=== PATIENT | male | born 1945 | race Caucasian/White ===

== ENCOUNTER 2019-08-30 21:09 | Observation (INO) | payer OTHER ==
--- OUTSIDE RECORDS SUMMARY | 2019-08-30 21:14 | XMS REPORT | Continuity of Care Document ---
:1945 Author Organization [employer] Care Team Providers Name Role Phone [employer] Unavailable Un available Problems Problem Status Onset Classification Date Comments Sourc e Date Reported PTCA - HX OF Active 07/07/19 Condition 07/06/2014 15 Medical Group CAD Active 07/07/19 Condition 07/06/2014 15 Medical Group Coronary Active 07/07/19 Problem 03/06/2019 Data arteriosclerosis 15 migrated Med ical (disorder) from [facility] on 08/24/14. ABNORMAL STRESS Active 06/17/19 Condition 07/06/2014 TEST 15 Medical Group PAIN Active 06/17/19 [place] DYSPNEA Active 06/07/19 Condition 07/06/2014 15 Medical Group Dyspnea (finding) Active 06/07/19 Problem 03/06/2019 Data M H 15 migrated Medical from [facility] on 08/24/14. CHEST PAIN, Active 05/19/19 Condition 07/06/2014 ATYPICAL 15 Medical Group BODY MASS INDEX Active 05/19/19 Condition 07/06/2014 35.0-35.9, ADULT 15 Med ical Group GERD Active 05/19/19 Condition 07/06/2014 15 Medical Group Atypical chest pain Active 05/19/19 Problem 03/06/2019 Data (finding) 15 migrated Medical from [facility] on 08/24/14. Gastroesophageal Active 05/19/19 Problem 03/06/2019 Data reflux disease 15 migrated Medic al (disorder) from [facility] on 08/24/14. 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 LONG-TERM (CURRENT) Active 05/11/19 Condition 07/06/2014 MH USE OF OTHER 14 Medical MEDICATIONS Group ACTINIC KERATOSIS Active 05/11/19 Condition 07/06/2014 M H 14 Medical Group Actinic keratosis Active 05/11/19 Problem 03/06/2019 Data M H (disorder) 14 migrated Medical from [facility] on 07/16/14. Long-term drug Active 05/11/19 Problem 03/06/2019 Data therapy (procedure) 14 migrated Medical from [facility] on 07/16/14. CHEST PAIN Inactive 04/01/19 Condition 07/06/2014 MH 13 Medical Group ALLERGIC RHINITIS Active Condition 07/06/2014 M H Medical Group HYPERLIPIDEMIA Active Condition 07/06/2014 Medical Group HYPERTENSION Active Condition 07/06/2014 Medical Group ERECTILE Active Condition 07/06/2014 DYSFUNCTION Medical Group CEREBROVASCULAR Active Condition 07/06/2014 ACCIDENT, HX OF Medi kelsi Group Allergic rhinitis Active Problem 03/06/2019 Data M H (disorder) migrated Medical from [facility] on 07/16/14. 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 (disorder) Mixed Active Problem 03/06/2019 hyperlipidemia Medic al (disorder) Group Obesity (disorder) Active Problem 03/06/2019 Medical Group Prediabetes Active Problem 03/06/2019 MH (finding) Medical Group Raised TSH level Active Problem 03/06/2019 MH (finding) Medical Group Hyperlipidemia Resolved Problem 06/25/2014 S [place] (disorder) [place] CHEST PAIN NOS Active MH [place] Medications Medication Details Route Status Patient Ordering Order Source Instructions Provider Date Ticagrelor 60 60 mg = 1 Active MH MG Oral Tablet tab, PO, BID, 020 Med ical [Brilinta] # 180 tab, 4 Group Refill(s), Pharmacy: [facility] tamsulosin 0.4 0.4 mg = 1 Active MH mg oral capsule cap, PO, 019 Medical Daily, For Group bph, # 90 cap, 1 Refill(s), Pharmacy: [facility] tamsulosin 0.4 0.4 mg = 1 Active MH mg oral capsule cap, PO, 019 Medical Daily, For Group bph, # 90 cap, 1 Refill(s), Pharmacy: [facility] Metoprolol 25 mg = 1 Active MH Tartrate 25 mg tab, PO, BID, 019 Med ical oral tablet # 180 tab, 1 Group Refill(s), Pharmacy: [facility] atorvastatin 40 See Active MH mg oral tablet Instructions, 019 Med ical TAKE ONE Group TABLET BY MOUTH AT BEDTIME, # 90 tab, 1 Refill(s), Pharmacy: [facility] sildenafil 100 See Active MH MG Oral Tablet Instructions, 019 Med ical PRN for Group erectile dysfunction, 1/2- 1 tab PO Daily prn Take 30 min before sexual activity, # 30 tab, 3 Refill(s), Pharmacy: [facility] atorvastatin 40 See No Longer MH mg oral tablet Instructions, Active 018 Med ical TAKE ONE Group TABLET BY MOUTH AT BEDTIME, # 90 tab, 1 Refill(s), Pharmacy: [facility] Metoprolol 25 mg = 1 No Longer MH Tartrate 25 mg tab, PO, BID, Active 018 Med ical oral tablet # 180 tab, 1 Group Refill(s), Pharmacy: [facility] sildenafil 100 100 mg = 1 No Longer MH MG Oral Tablet tab, PO, Active 018 Medical [Viagra] Daily, PRN Group for erectile dysfunction, Take 30 minutes prior to intercourse (1/2 to 1), # 20 tab, 3 Refill(s), Pharmacy: [facility] 2 Ticagrelor 60 60 mg = 1 Active MH MG Oral Tablet tab, PO, BID, 018 Med ical [Brilinta] # 180 tab, 4 Group Refill(s) Ticagrelor 60 60 mg = 1 Inactive MH MG Oral Tablet tab, PO, BID, 018 Med ical [Brilinta] # 60 tab, 3 Group Refill(s), other Metoprolol 25 mg = 1 Active Tartrate 25 mg tab, PO, BID, 018 Med ical oral tablet # 180 tab, 1 Group Refill(s), Pharmacy: [facility] 482 atorvastatin 40 See Active MH mg oral tablet Instructions, 018 Med ical TAKE ONE Group TABLET BY MOUTH AT BEDTIME, # 90 tab, 1 Refill(s), Pharmacy: [facility] Metoprolol 25 mg = 1 Active Tartrate 25 mg tab, PO, BID, 017 Med ical oral tablet # 180 tab, 1 Group Refill(s), Pharmacy: [place] [id number] sildenafil 100 100 mg = 1 Active MH MG Oral Tablet tab, PO, 017 Medical [Viagra] Daily, PRN Group for erectile dysfunction, Take 30 minutes prior to intercourse (02/18 to 1), # 20 tab, 3 Refill(s) sildenafil 100 100 mg = 1 Inactive MH MG Oral Tablet tab, PO, 017 Medical [Viagra] Daily, PRN Group for erectile dysfunction, Take 30 minutes prior to intercourse (02/18 to 1), # 20 tab, 3 Refill(s), Pharmacy: [place] [id number] metoprolol 25 mg = 1 Active [place] tartrate 25 mg tab, PO, BID, 015 Krishna d oral tablet # 60 tab, 11 Refill(s) Aspirin Notes: Do not Inactive [place] crush or 015 [place] chew. (Same As: Ecotrin) Lisinopril Notes: (Same Inactive [place] as: Prinivil, 015 [place] Zestril) Tylenol Notes: Do not Inactive [place] exceed 4 015 [place] gm/day. (Same as: Tylenol) Pravastatin Notes: (Same No Longer Brayd gar as: Active 015 Land Pravachol) Ticagrelor Notes: (Same No Longer [place] as: Brilinta) Active 015 Land lisinopril 10 10 mg = 1 Active [place] mg oral tablet tab, PO, 015 [place] Daily, # 30 tab, 0 Refill(s) Aspirin 81 MG 81 mg = 1 Active [place] Enteric Coated tab, PO, 015 [place] Tablet [Kamila Daily, 0 Aspirin] Refill(s) ticagrelor 90 90 mg = 1 Active [place] mg oral tablet tab, PO, BID, 015 Krishna d 0 Refill(s) pravastatin 40 40 mg = 1 Active [place] mg oral tablet tab, PO, 015 [place] Bedtime, # 30 tab, 0 Refill(s) metoprolol Notes: (Same No Longer [place] tartrate as: Active 015 [place] Lopressor) Nitroglycerin Notes: (Same No Longer [place] as:Nitroquick Active 015 [place] , Nitrostat) "Do Not Crush" Sublingual tablet Ticagrelor 90 90 mg = 1 Inactive [place] MG Oral Tablet tab, PO, BID, 015 Krishna d [Brilinta] 0 Refill(s) Aspirin Low 1, PO, Daily, Inactive Brady gar Dose 81 mg oral 0 Refill(s) 015 [place] tablet pravastatin 40 40 mg = 1 Inactive [place] mg oral tablet tab, PO, 015 [place] Bedtime, # 30 tab, 0 Refill(s) lisinopril 10 10 mg = 1 Inactive [place] mg oral tablet tab, PO, 015 [place] Daily, # 30 tab, 0 Refill(s) normal saline 1,000 mL, No Longer [place] ar 0.9% IV 1,000 Rate: 250 Active 015 Land mL ml/hr, Infuse over: 4 hr, Route: IV, Dosing Weight 100 kg, Total Volume: 1,000, Start date: 06/21/14 7:35:00, Duration: 30 day, Stop date: 07/21/14 7:34:00 BRILINTA 90 MG 1 tablet Active TABS twice daily 015 Medical Group LISINOPRIL 5 MG 1 daily for Active TABS BP 014 Medical Group ADULT ASPIRIN 1 daily Active MH EC LOW STRENGTH 014 Medical 81 MG TBEC Group FLUOROURACIL 5 apply daily No Longer MH % CREA to actinic Active 014 Medical keratosis 3-4 Group weeks LISINOPRIL 10 1 tablet Active MH MG TABS daily 014 Medical Group PRAVASTATIN 1 daily Active MH SODIUM 40 MG 013 Medical TABS Group VIAGRA 100 MG 1/2 to 1 Active MH TABS tablet PO prn 012 Medical Group CLARITIN-D 12 No Longer MH HOUR 5-120 MG Active 012 Medical [id number] Group VIAGRA 100 MG 1/2 to 1 Active MH TABS tablet PO prn 012 Medical Group Allergies, Adverse Reactions, Alerts Substance Category Reaction Severity Reaction Status Date Comments S ource type Reported No Known Assertion Drug Medication allergy Medic al Allergies Group Immunizations Immunization Date Site Status Last Updated Comments Sour ce Given influenza virus Left completed Naik Result [facility] edical vaccine, 9 Deltoid Comment: Group inactivated<sup> Observed for 1</sup> 15 minutes with no adverse reactions noted. influenza virus Left completed Naik Result [facility] edical vaccine, 8 Deltoid Comment: Group inactivated<sup> Observed for 2</sup> 15 minutes with no adverse reactions noted. influenza virus Left completed Naik Result [facility] edical vaccine, 8 Deltoid Comment: Group inactivated<sup> Observed for 1</sup> 15 minutes with no adverse reactions noted. pneumococcal Right completed [place] Result Medi kelsi 13-valent 7 Deltoid Comment: Group vaccine<sup>1</s Observed 15 up> min. No adverse reaction. pneumococcal Right completed [place] Result Medi kelsi 13-valent 7 Deltoid Comment: Group vaccine<sup>4</s Observed 15 up> min. No adverse reaction. pneumococcal Right completed [place] Result Medi kelsi 13-valent 7 Deltoid Comment: Group vaccine<sup>3</s Observed 15 up> min. No adverse reaction. influenza virus Left completed [place] Result [facility] edical vaccine, 7 Deltoid Comment: Group inactivated<sup> Observed 15 2</sup> min. No adverse reaction. influenza virus Left completed [place] Result [facility] edical vaccine, 7 Deltoid Comment: Group inactivated<sup> Observed 15 3</sup> min. No adverse reaction. dT (Diphtheria completed [facility] dical and Tetanus) 1 Group immunization for children, #1 tetanus-diphther completed [facility] Result Medical ia 1 Comment: td. Group toxoids<sup>3</s Migrated from up> OBS ; Data migrated from [facility] on 03/21/2015. tetanus-diphther completed [facility] Result Medical ia 1 Comment: td. Group toxoids<sup>5</s Migrated from up> OBS ; Data migrated from [facility] on 03/21/2015. tetanus-diphther completed GE Result Medical ia 1 Comment: td. Group toxoids<sup>4</s Migrated from up> OBS ; Data migrated from [facility] on 03/21/2015. pneumococcal completed Medi kelsi immunization 1 Group administered pneumococcal completed [facility] Result Medi kelsi 23-valent 1 Comment: Group vaccine<sup>4</s pneumovax. up> Migrated from OBS ; Data migrated from [facility] on 03/21/2015. pneumococcal completed GE Result Medi kelsi 23-valent 1 Comment: Group vaccine<sup>6</s pneumovax. up> Migrated from OBS ; Data migrated from [facility] on 03/21/2015. pneumococcal completed GE Result Medi kelsi 23-valent 1 Comment: Group vaccine<sup>5</s pneumovax. up> Migrated from OBS ; Data migrated from [facility] on 03/21/2015. dT (Diphtheria completed [facility] dical and Tetanus) 1 Group booster given dT (Diphtheria completed [facility] dical and Tetanus) 4 Group booster given Results Order Name Results Value Reference Date Interpretation Comments Alice rce Range ELECTROLYTES AGAP 11.9 10.0 - 05/06 [place] 20.0 /2015 [place] ELECTROLYTES eGFR 61 06/22 <sup>1</sup>R Brady esult [place] Comment: The eGFR is calculated using the CKD-EPI formula. In most young, healthy individuals the eGFR will be >90 mL/min/1.73m2 . The eGFR declines with age. An eGFR of 60-89 may be normal in some populations, particularly the elderly, for whom the CKD-EPI formula has not been extensively validated. Use of the eGFR is not recommended in the following populations:& lt;br/>
I ndividuals with unstable creatinine concentration s, including patients and those with serious co-morbid conditions.<b r/>
Patie nts with extremes in muscle mass or diet.

The data above are obtained from the National Kidney Disease Education Program (NKDEP) which additionally recommends that when the eGFR is used in patients with extremes of body mass index for purposes of drug dosing, the eGFR should be multiplied by the estimated BMI. ELECTROLYTES Potassium Lvl 3.9 3.5 - 5.1 05/06 MH [place] ELECTROLYTES CO2 25 24 - 32 05/ MH [place] ELECTROLYTES Chloride Lvl 107 95 - 109 05/06 MH [place] ELECTROLYTES Creatinine Lvl 1.2 0.5 - 1.4 05/ MH [place] ELECTROLYTES Sodium Lvl 140 135 - 145 05/06 MH [place] ELECTROLYTES BUN 14 7 - 22 05/ MH [place] ELECTROLYTES Glucose Lvl 104 70 - 99 05/ <sup>2</sup>I M H nterpretive [place] Data: Adult reference range values reflect the clinical guidelines
of the [employer]. ELECTROLYTES Calcium Lvl 8.2 8.5 - 10.5 05/06 MH S ugar /2014 [place] HEMATOLOGY Monocytes # 0.6 0.0 - 0.8 05/06 MH [place] /2014 [place] HEMATOLOGY Basophils # 0.0 0.0 - 0.2 05/06 MH [place] /2014 [place] HEMATOLOGY Eosinophils # 0.1 0.0 - 0.5 05/06 MH [place] HEMATOLOGY Eosinophils 2.1 0.0 - 4.0 05/06 MH [place] /2014 [place] HEMATOLOGY Monocytes 8.2 2.0 - 12.0 05/06 MH [place] HEMATOLOGY Basophils 0.4 0.0 - 1.0 05/06 MH [place] HEMATOLOGY Segs-Bands # 4.1 1.5 - 8.1 05/06 [place] /2014 [place] HEMATOLOGY Lymphocytes 30.9 20.0 - 05/06 [place] 40.0 /2014 [place] HEMATOLOGY Segs 58.4 45.0 - 05/06 [place] 75.0 /2014 [place] HEMATOLOGY Lymphocytes # 2.2 1.0 - 5.5 05/06 Brady gar /2014 [place] HEMATOLOGY MCHC 34.2 32.0 - 05/06 [place] 36.0 /2014 [place] HEMATOLOGY Platelet 189 133 - 450 05/ [place] /2014 [place] HEMATOLOGY RDW 14.2 11.5 - 05/06 [place] 14.5 /2014 [place] HEMATOLOGY MPV 7.3 7.4 - 10.4 05/ [place] /2014 [place] HEMATOLOGY Hgb 12.9 14.0 - 05/06 [place] 18.0 /2014 [place] HEMATOLOGY Hct 37.7 42.0 - 05/ [place] 54.0 /2014 [place] HEMATOLOGY MCV 89.7 80.0 - 05/ [place] 94.0 /2014 [place] HEMATOLOGY MCH 30.7 27.0 - 05/06 [place] 31.0 /2014 [place] HEMATOLOGY WBC 7.0 3.7 - 10.4 05/06 [place] /2014 [place] HEMATOLOGY RBC 4.20 4.70 - 05/ [place] 6.10 /2014 [place] HEMATOLOGY POC Activated 376 06/21 [place] Clotting Time /2014 [place] Chemistry SODIUM 139 135 - 143 06/16 Medical Group Chemistry POTASSIUM 4.4 3.3 - 5.0 06/16 Medical Group Chemistry BUN 14 10 - 22 06/16 Medical Group Chemistry CREATININE 1.21 0.46 - 06/16 1.20 /2014 Medical Group Chemistry CALCIUM 9.4 8.6 - 9.8 06/16 Medical Group Coagulation INR 1.08 0.8 - 1.5 06/16 Medical Group Coagulation PTT PATIENT 26.5 22.0 - 06/16 36.0 /2014 Medical Group Hematology HGB 13.8 12.3 - 06/16 17.3 /2014 Medical Group Hematology HCT 41.7 36.7 - 06/16 MH 50.5 /2014 Medical Group Chemistry CHOLESTEROL 207 120 - 200 12/ Medical Group Chemistry HDL 40 26 - 62 12/ Medical Group Chemistry CHOLESTEROL 207 120 - 200 12/ MH /2014 Medical Group Chemistry HDL 40 26 - 62 01/20 Medical Group Chemistry LDL 135 0 - 130 01/20 Medical Group Chemistry SODIUM 138 135 - 143 01/20 Medical Group Chemistry POTASSIUM 4.2 3.3 - 5.0 01/20 Medical Group Chemistry BUN 14 10 - 01/20 Medical Group Chemistry CREATININE 1.10 0.46 - 01/20 1. /2013 Medical Group Chemistry SGPT (ALT) 20 - 43 01/20 Medical Group Chemistry SGOT (AST) 18 10 - 42 01/20 Medical Group Chemistry PSA 1.16 0 - 4.0 01/20 Medical Group Chemistry CHOLESTEROL 278 05/10 Medical Group Chemistry TRIGLYCERIDE 138 05/10 Medical Group Chemistry CHOLESTEROL 278 05/10 Medical Group Chemistry TRIGLYCERIDE 138 05/10 Medical Group Chemistry HDL 40 05/10 Medical Group Chemistry LDL 210 05/10 Medical Group Chemistry PSA 1.23 05/10 Medical Group Chemistry CHOLESTEROL 290 04/01 Medical Group Chemistry TRIGLYCERIDE 234 04/01 Medical Group Chemistry CHOLESTEROL 290 04/01 Medical Group Chemistry TRIGLYCERIDE 234 04/01 Medical Group Chemistry HDL 37 04/01 Medical Group Chemistry LDL 206 04/01 Medical Group Chemistry PSA 0.94 04/01 Medical Group Chemistry TSH 3.24 04/01 Medical Group Chemistry PSA 0.92 09/25 Medical Group Chemistry PSA 0.92 09/25 Medical Group Chemistry CHOLESTEROL 228 09/25 Medical Group Chemistry TRIGLYCERIDE 101 09/25 Medical Group Chemistry CHOLESTEROL 228 09/25 Medical Group Chemistry TRIGLYCERIDE 101 09/25 Medical Group Chemistry HDL 35 09/25 Medical Group Chemistry LDL 173 09/25 Medical Group Chemistry TSH 3.54 09/25 Medical Group Pathology Reports No Data Provided for This Section Diagnostic Reports No Data Provided for This Section Consultation Notes No Data Provided for This Section Discharge Summaries No Data Provided for This Section History and Physicals No Data Provided for This Section Vital Signs Vital Sign Value Date Comments Source Systolic (mm Hg) 146 03/03/2019 Medical Group Diastolic (mm Hg) 77 03/03/2019 Medical Group Heart Rate 77 03/03/2019 MH Medical Grou p Height 167.64 cm 03/03/2019 MH Medical Grou p Weight 103.182 03/03/2019 Medical Grou p BMI Calculated 36.72 03/03/2019 Medical Gr oup Systolic (mm Hg) 132 01/19/2019 MH Medical Group Diastolic (mm Hg) 81 01/19/2019 Medical Group Heart Rate 56 01/19/2019 Medical Grou p Temperature Oral (F) 98.0 F 01/19/2019 Medi kelsi Group Height 167.64 cm 01/19/2019 Medical Grou p Weight 103.182 01/19/2019 Medical Grou p BMI Calculated 36.72 01/19/2019 Medical Gr oup BMI Calculated 35.75 07/15/2018 Medical Gr oup Weight 100.455 07/15/2018 Medical Grou p Height 167.64 cm 07/15/2018 Medical Grou p Heart Rate 54 07/15/2018 Medical Grou p Systolic (mm Hg) 129 07/15/2018 Medical Group Diastolic (mm Hg) 73 07/15/2018 Medical Group Height 168.91 cm 07/01/2018 Medical Grou p BMI Calculated 35.07 07/01/2018 Medical Gr oup Weight 100.057 07/01/2018 Medical Grou p Heart Rate 54 07/01/2018 Medical Grou p Temperature Oral (F) 98.1 F 07/01/2018 Medi kelis Group Systolic (mm Hg) 133 07/01/2018 Medical Group Diastolic (mm Hg) 83 07/01/2018 Medical Group Height 167.64 cm 03/05/2018 Medical Grou p Weight 98.239 03/05/2018 Medical Grou p BMI Calculated 34.96 03/05/2018 Medical Gr oup Systolic (mm Hg) 135 03/05/2018 Medical Group Diastolic (mm Hg) 84 03/05/2018 Medical Group Heart Rate 54 03/05/2018 Medical Grou p Systolic (mm Hg) 128 12/31/2017 Medical Group Diastolic (mm Hg) 80 12/31/2017 Medical Group BMI Calculated 34.98 12/31/2017 Medical Gr oup Weight 98.295 12/31/2017 MH Medical Grou p Height 167.64 cm 12/31/2017 Medical Grou p Heart Rate 62 12/31/2017 Medical Grou p Temperature Oral (F) 97.9 F 12/31/2017 Medi kelsi Group Systolic (mm Hg) 143 12/31/2017 Medical Group Diastolic (mm Hg) 84 12/31/2017 Medical Group Weight 93.295 06/25/2017 Medical Grou p BMI Calculated 33.2 06/25/2017 MH Medical Gr oup Height 167.64 cm 06/25/2017 Medical Grou p Heart Rate 62 06/25/2017 Medical Grou p Systolic (mm Hg) 131 06/25/2017 Medical Group Diastolic (mm Hg) 83 06/25/2017 Medical Group BMI Calculated 33 06/23/2017 Medical Gr oup Weight 94.148 06/23/2017 Medical Grou p Temperature Oral (F) 98.0 F 06/23/2017 Medi kelsi Group Heart Rate 53 06/23/2017 Medical Grou p Height 168.91 cm 06/23/2017 Medical Grou p Systolic (mm Hg) 148 06/23/2017 Medical Group Diastolic (mm Hg) 87 06/23/2017 Medical Group Weight 94.261 03/17/2017 Medical Grou p Heart Rate 66 03/17/2017 Medical Grou p Temperature Oral (F) 98.2 F 03/17/2017 Medi kelsi Group Systolic (mm Hg) 117 03/17/2017 Medical Group Diastolic (mm Hg) 79 03/17/2017 Medical Group BMI Calculated 32.65 01/03/2017 Medical Gr oup Weight 94.545 01/03/2017 Medical Grou p Heart Rate 74 01/03/2017 Medical Grou p Temperature Oral (F) 97.7 F 01/03/2017 Medi kelsi Group Height 170.18 cm 01/03/2017 Medical Grou p Systolic (mm Hg) 127 01/03/2017 Medical Group Diastolic (mm Hg) 81 01/03/2017 Medical Group Weight 213 07/06/2014 Medical Grou p Respitory Rate 18 07/06/2014 Medical Gr oup Systolic (mm Hg) 100 07/06/2014 Medical Group Diastolic (mm Hg) 70 07/06/2014 Medical Group Heart Rate 66 07/06/2014 Medical Grou p Systolic (mm Hg) 123 06/22/2014 [place] Diastolic (mm Hg) 77 06/22/2014 [place] and Respitory Rate 18 06/22/2014 [place] Heart Rate 75 06/22/2014 [place] Temperature Oral (F) 97.5 F 06/22/2014 [place] Respitory Rate 19 06/22/2014 [place] Heart Rate 68 06/22/2014 [place] Temperature Oral (F) 97.8 F 06/22/2014 [place] Systolic (mm Hg) 120 06/22/2014 [place] Diastolic (mm Hg) 79 06/22/2014 [place] and Temperature Oral (F) 98.9 F 06/22/2014 [place] Respitory Rate 19 06/22/2014 [place] Heart Rate 82 06/22/2014 [place] Systolic (mm Hg) 131 06/22/2014 [place] Diastolic (mm Hg) 84 06/22/2014 [place] L and BMI Calculated 34.53 06/21/2014 [place] Weight 100 06/21/2014 [place] Height 170.18 cm 06/21/2014 [place] Weight 219 06/16/2014 Medical Grou p Respitory Rate 18 06/16/2014 Medical Gr oup Systolic (mm Hg) 126 06/16/2014 Medical Group Diastolic (mm Hg) 79 06/16/2014 Medical Group Heart Rate 56 06/16/2014 Medical Grou p Weight 220 06/06/2014 Medical Grou p Respitory Rate 18 06/06/2014 Medical Gr oup Systolic (mm Hg) 145 06/06/2014 Medical Group Diastolic (mm Hg) 92 06/06/2014 Medical Group Heart Rate 80 06/06/2014 Medical Grou p Weight 220 05/18/2014 Medical Grou p Temperature Oral (F) 97.7 F 05/18/2014 Medi kelsi Group Systolic (mm Hg) 126 05/18/2014 Medical Group Diastolic (mm Hg) 85 05/18/2014 Medical Group Heart Rate 72 05/18/2014 Medical Grou p Respitory Rate 16 05/18/2014 Medical Gr oup Temperature Oral (F) 97.3 F 01/20/2014 Medi kelsi Group Height 66.5 01/20/2014 Medical Grou p Weight 224.4 01/20/2014 Medical Grou p Respitory Rate 16 01/20/2014 Medical Gr oup Heart Rate 68 01/20/2014 Medical Grou p Systolic (mm Hg) 124 01/20/2014 Medical Group Diastolic (mm Hg) 76 01/20/2014 Medical Group Weight 227.4 05/10/2013 Medical Grou p Temperature Oral (F) 97.1 F 05/10/2013 Medi kelsi Group Heart Rate 64 05/10/2013 Medical Grou p Systolic (mm Hg) 144 05/10/2013 Medical Group Diastolic (mm Hg) 82 05/10/2013 Medical Group Respitory Rate 16 05/10/2013 Medical Gr oup Weight 226.2 12/02/2012 Medical Grou p Heart Rate 84 12/02/2012 Medical Grou p Temperature Oral (F) 98.7 F 12/02/2012 Medi kelsi Group Systolic (mm Hg) 122 12/02/2012 Medical Group Diastolic (mm Hg) 84 12/02/2012 Medical Group Respitory Rate 18 12/02/2012 Medical Gr oup Weight 221.2 04/01/2012 Medical Grou p Temperature Oral (F) 97.0 F 04/01/2012 Medi kelsi Group Heart Rate 76 04/01/2012 Medical Grou p Systolic (mm Hg) 132 04/01/2012 Medical Group Diastolic (mm Hg) 86 04/01/2012 Medical Group Respitory Rate 20 04/01/2012 Medical Gr oup Height 66.25 11/22/2011 Medical Grou p Weight 225 11/22/2011 Medical Grou p Temperature Oral (F) 97.5 F 11/22/2011 Medi kelsi Group Heart Rate 84 11/22/2011 Medical Grou p Systolic (mm Hg) 126 11/22/2011 Medical Group Diastolic (mm Hg) 80 11/22/2011 Medical Group Respitory Rate 18 11/22/2011 Medical Gr oup Encounters Location Location Encounter Encounter Reason Attending ADM DC Stat us Source Details Type Number For Provider Date Date Visit [facility] Office [id number] Art 05/10 05/10 [place] Medical Visit [id number], /2013 Me meghan De La Rosa MD Group [facility] Office [id number] Art 01/20 01/20 [place] Medical Visit [id number], /2013 Me meghan De La Rosa MD [facility] Lab Report [id number] Art 01/20 01/20 [facility] [place] [facility] 9430 [address], /2013 Me meghan De La Rosa MD [facility] Office [id number] Art 05/18 05/18 [place] Medical Visit 3440 Nba, /2014 Me meghan De La Rosa MD [facility] [place] Office [id number] Art 06/06 06/06 [place] Visit 6950 Nba, /2014 Medica l Multispecia Formerly [facility] ([facility]) Cardiology [facility] Lab Report [id number] Majid 06/16 06/16 [place] [facility] 1620 MD Sarah /2014 Med karly [facility] Bedded [id number] Majid 06/21 06/22 [place] Outpatient Sarah /2014 Land Allison [facility] Office [id number] Majid 07/06 07/06 [place] Medical Visit 4730 MD Sarah /2014 Med karly [facility] Outpatient [id number] MAJID 11/30 Active [facility] SARAH [place] Outpatient [id number] MAJID 01/10 Active [facility] SARAH [place] Outpatient [id number] ART 03/07 Active [facility] KLAWITT [facility] Outpatient [id number] ART 04/17 Active [facility] KLAWITT [place] Outpatient [id number] MAJID 05/30 Active [facility] SARAH [place] Outpatient [id number] ART 09/12 Active [facility] KLAWITT [place] Outpatient [id number] ART 09/12 Active [facility] KLAWITTER [place] Outpatient [id number] MAJID 11/28 Active [facility] SARAH [facility] Outpatient [id number] SUMMER 11/28 Active [facility] CHRIS [facility] Outpatient [id number] MAJID 11/28 Active [facility] SARAH [place] Outpatient [id number] MAJID 05/29 Active [facility] SARAH [facility] Outpatient [id number] MAJID 06/19 Active [facility] SARAH [place] Outpatient [id number] ART 06/20 Active [facility]os Outpatient [id number] ART 01/03 [facility] [id number] Majid 01/03 01/04 Primary Sarah /2016 [facility] Phone [id number] 01/08 01/10 Primary Message /2016 [facility] [place] Outpatient [id number] ART 03/17 Active [facility] [place] Outpatient [id number] ART 03/17 Active [facility] [id number] Art 03/17 03/17 Primary Pre-Reg /2017 Medic al Care Group [facility] Outpatient [id number] Art 03/17 03/18 Primary [place] /2017 [facility]ica l [facility] [place] Outpatient [id number] ART 06/23 Active [facility] Outpatient [id number] Art 06/23 06/24 Primary [place] /2017 [facility] [place] Outpatient [id number] MAJID 06/25 Active [facility] [place] [facility] Outpatient [id number] Majid 06/25 06/26 Cardiology Sarah /2017 Medica l [facility] Outpatient [id number] JERECIA 12/31 Active [facility] Christos [facility] Outpatient [id number] Jerecia 12/31 01/01 Primary [facility] [place] Outpatient [id number] MAJID 03/05 Active [facility] [id number] Majid 03/05 03/06 Cardiology Sarah /2018 Medica l [facility] Outpatient [id number] Jerecia 07/01 Active [facility] [id number] Jerecia 07/01 07/02 Primary [place] /2018 [facility] Between [id number] 07/02 07/03 Primary Visit /2018 [facility] [place] Outpatient [id number] Majid 07/15 Active [facility] [id number] Majid 07/15 07/16 Cardiology Sarah /2018 Medica l [facility] Phone [id number] 10/29 10/31 Primary Message /2018 [facility] Outpatient [id number] Jerecia 01/19 Active [facility] [place] [facility] Outpatient [id number] Majid 01/19 01/20 Primary Sarah /2018 [facility] Rj [facility] Between [id number] 01/26 01/27 Primary Visit /2018 [facility] Outpatient [id number] Majid 03/03 [facility] Sarah [facility] Outpatient [id number] Majid 03/03 03/04 Cardiology Sarah [facility] Outpatient [id number] Majid 08/31 [facility] [place] Procedures Procedure Code Date Perfomer Comments Source Destruction (eg, [address]86 07/01/2018 Medic al laser surgery, Group electrosurgery, cryosurgery, chemosurgery, surgical curettement), premalignant lesions (eg, actinic keratoses); first lesion Stent placement [id number] 02/17/2014 Medica l Group Replacement of [id number] [facility] total knee joint Group, Allison Assessment and Plan No Data Provided for This Section Plan of Care No Data Provided for This Section Social History Social History Date Source Social History TypeResponse 03/03/2019 Medical G roup Smoking Status Never smoker; Exposure to Tobacco Smoke None; Cigarette Smoking Last 365 Days No; Reg Smoking Cessation Counseling No entered on: 03/03/19 Social History TypeResponse 06/21/2014 [place] Krishna d Smoking Status Never smoker; Exposure to Tobacco Smoke None; Cigarette Smoking Last 365 Days No; Reg Smoking Cessation Counseling No Family History No Data Provided for This Section Advance Directives No Data Provided for This Section Functional Status No Data Provided for This Section
[2019-08-30] MEDS ORDERED: TETRACAINE HCL 0.5% 4ML OPTH ONE (22:53)
[2019-08-30] MEDS ORDERED: FLUORESCEIN SODIUM 1 MG/WRAP ONE (22:53)
[2019-08-30 23:34] LABS: Absolute Lymphocytes (CBC) 3.3 K/uL (0.7-4.9); Basophils % 0.3 % (0-1.3); Hematocrit 39.2 % (39.6-49.0); Lymphocytes % 39.1 % (15.3-44.8); MPV 7.9 fL (7.6-11.3); RBC Red Blood Cell Count 4.39 M/uL (4.33-5.43)
[2019-08-30 23:38] LABS: Protime INR 1.07
--- NOTE | 2019-08-30 23:41 | EDPHYS ---
Physician Documentation [facility] Name: Marcello Manzanares Age: 73 yrs Sex: Male : 1945 Arrival Date: 08/30/2019 Time: 21:18 Bed 5 Private MD: ED Physician Karl Givens HPI: 08/29 22:00 This 73 yrs old Male presents to ER via Ambulatory with complaints of Vision mh7 Problem, Double Vision. 22:00 The patient is experiencing double vision, The patient sustained None. to both eyes, mh7 caused by an unknown mechanism. Onset: The symptoms/episode began/occurred 4 day(s) ago. Duration: the symptoms are continuous. Aggravated by nothing. Alleviated by covering eye. Associated signs and symptoms: Pertinent negatives: chills, dizziness, ear ache, fever, headache, runny nose. Patient wears glasses. Severity of symptoms: At their worst the symptoms were moderate 4 day(s) ago, in the emergency department the symptoms have improved moderately. The patient has been recently seen by a physician: an opthalmologist, earlier today. Historical: - Allergies: 21:24 Iodine; ll1 - PMHx: 21:24 Hypertension; High Cholesterol; CAD; TIA; ll1 - PSHx: 21:24 Knee surgery; Heart stents; ll1 - Immunization history:: Flu vaccine is up to date. - Social history:: Smoking status: Patient denies any tobacco usage or history of. Patient/guardian denies using alcohol, street drugs, tobacco products. ROS: 22:00 Constitutional: Negative for fever, chills, and weight loss, Eyes: Negative for injury, mh7 pain, redness, and discharge, ENT: Negative for injury, pain, and discharge, Neck: Negative for injury, pain, and swelling, Cardiovascular: Negative for chest pain, palpitations, and edema, Respiratory: Negative for shortness of breath, cough, wheezing, and pleuritic chest pain, Abdomen/GI: Negative for abdominal pain, nausea, vomiting, diarrhea, and constipation, Back: Negative for injury and pain, : Negative for injury, bleeding, discharge, and swelling, MS/Extremity: Negative for injury and deformity, Skin: Negative for injury, rash, and discoloration, Neuro: Negative for headache, weakness, numbness, tingling, and seizure, Psych: Negative for depression, anxiety, suicide ideation, homicidal ideation, and hallucinations, Allergy/Immunology: Negative for hives, rash, and allergies, Endocrine: Negative for neck swelling, polydipsia, polyuria, polyphagia, and marked weight changes, Hematologic/Lymphatic: Negative for swollen nodes, abnormal bleeding, and unusual bruising. Exam: 22:00 Constitutional: This is a well developed, well nourished patient who is awake, alert, mh7 and in no acute distress. Head/Face: Normocephalic, atraumatic. 22:00 Neck: Trachea midline, no thyromegaly or masses palpated, and no cervical lymphadenopathy. Supple, full range of motion without nuchal rigidity, or vertebral point tenderness. No Meningismus. Chest/axilla: Normal chest wall appearance and motion. Nontender with no deformity. No lesions are appreciated. Cardiovascular: Regular rate and rhythm with a normal S1 and S2. No gallops, murmurs, or rubs. Normal PMI, no JVD. No pulse deficits. Respiratory: Lungs have equal breath sounds bilaterally, clear to auscultation and percussion. No rales, rhonchi or wheezes noted. No increased work of breathing, no retractions or nasal flaring. Abdomen/GI: Soft, non-tender, with normal bowel sounds. No distension or tympany. No guarding or rebound. No evidence of tenderness throughout. Back: No spinal tenderness. No costovertebral tenderness. Full range of motion. Skin: Warm, dry with normal turgor. Normal color with no rashes, no lesions, and no evidence of cellulitis. MS/ Extremity: Pulses equal, no cyanosis. Neurovascular intact. Full, normal range of motion. Neuro: Awake and alert, GCS 15, oriented to person, place, time, and situation. Cranial nerves II-XII grossly intact. Motor strength 5/5 in all extremities. Sensory grossly intact. Cerebellar exam normal. Normal gait. Psych: Awake, alert, with orientation to person, place and time. Behavior, mood, and affect are within normal limits. 22:00 Eyes: Periorbital structures: appear normal, Pupils: equal, round, and reactive to light and accomodation, Extraocular movements: intact throughout, Conjunctiva: normal, Sclera: no appreciated abnormality, funduscopic exam reveals no obvious abnormalities. 07/14 02:04 Eyes: Corneas: are normal, Lids and lashes: appear normal, Visual rodríguez: are intact, mh7 Nystagmus: is not appreciated. Vital Signs: 08/29 21:21 BP 151 / 85; Pulse 105; Resp 18; Temp 98.8; Pulse Ox 94% ; Pain 0/10; ll1 23:20 BP 130 / 89; Pulse 90; Resp 19; Pulse Ox 95% ; rr5 08/30 00:30 BP 135 / 75; Pulse 85; Resp 15; Temp 98.5; Pulse Ox 99% ; rr5 Visual Acuity: 08/29 22:40 Left Eye Visual acuity 20/25, ; Right Eye Visual acuity 20/20, ; Both Eyes Visual rr5 acuity 20/20; With Lenses; MDM: 21:53 Patient medically screened. mh7 23:38 Differential diagnosis: Corneal abrasion of both eyes. Corneal ulcer of both eyes. mh7 Foreign body in both eyes. Acute iritis of Acute glaucoma in Ultraviolet keratitis in CVA. Data reviewed: vital signs, nurses notes, lab test result(s), radiologic studies, CT scan. Data interpreted: Pulse oximetry: on room air is 95 %. Interpretation: normal. Counseling: I had a detailed discussion with the patient and/or guardian regarding: the historical points, exam findings, and any diagnostic results supporting the discharge/admit diagnosis, lab results, radiology results, the need for further work-up and treatment in the hospital. Physician consultation: Avi Neville MD regarding patient's condition, and will see patient in inpatient room, would like admission per Dr. Veronica Chapman MD. 08/29 21:54 Order name: CBC with Diff 7 08/29 21:54 Order name: Basic Metabolic Panel; Complete Time: 00:11 7 08/29 21:54 Order name: Protime (+inr); Complete Time: 00:11 7 08/29 21:54 Order name: Ptt, Activated; Complete Time: 00:11 7 08/29 22:51 Order name: Glucose, Ancillary Testing; Complete Time: 23:16 EDMS 08/29 23:43 Order name: Manual Differential EDMS 08/30 00:37 Order name: CBC with Automated Diff EDMS 08/30 00:37 Order name: Comprehensive Metabolic Panel EDMS 08/30 00:37 Order name: Magnesium EDMS 08/30 00:37 Order name: Phosphorus EDMS 08/30 00:37 Order name: Protime (+INR) EDMS 08/30 00:37 Order name: PTT, Activated Partial Thromb EDMS 08/30 00:37 Order name: Lipid Profile EDOH 08/30 07:16 Order name: Lipid Profile EDOH 08/29 21:54 Order name: CT Head Brain wo Cont [facility] 08/29 22:40 Order name: Visual Acuity; Complete Time: 22:40 rr5 08/30 00:37 Order name: Physical Therapy Consult EDOH 08/30 00:37 Order name: Echo with Doppler EDOH 08/30 00:37 Order name: EKG Electrocardiogram EDOH 08/30 00:37 Order name: Stroke Protocol EDOH 08/30 00:38 Order name: Chest Pa And Lat (2 Views) EDOH 08/30 00:38 Order name: Carotid Artery Bilateral EDOH 08/30 01:58 Order name: Eye Tray; Complete Time: 01:58 [facility] 08/30 01:58 Order name: Fluoresene Opth strip; Complete Time: 01:58 [facility] 08/30 16:26 Order name: MRI EDOH 08/30 16:28 Order name: MRI EDOH 08/30 16:30 Order name: MRI EDOH Administered Medications: 08/30 00:25 Drug: Tetracaine Drops 0.5 % 1 drops Route: Ophthalmic; Site: both eyes; rr5 01:25 Follow up: Response: No adverse reaction rr5 Disposition: 08/30/19 23:40 Hospitalization ordered by Veronica Chapman for Observation. Preliminary diagnosis is Diplopia. - Bed requested for [facility] ER HOLD. - Status is Observation. rv - Condition is Stable. - Problem is new. - Symptoms are unchanged. Signatures: Dispatcher [employer] [facility] Natalie Key RN RN cg Fabio Morrell RN RN rv Juanpablo Rome RN RN rr5 iKrsten Uriostegui RN RN ll1 Karl Givens MD MD mh7 Corrections: (The following items were deleted from the chart) :08/29 23:40 Hospitalization Ordered by Veronica Chapman MD for Observation. Preliminary cg diagnosis is Diplopia. Bed requested for Telemetry/MedSurg (observation). Status is Observation. Condition is Stable. Problem is new. Symptoms are unchanged. mh7 08/30 20:25 01:14 08/30/2019 23:40 Hospitalization Ordered by Veronica Chapman MD for Observation. rv Preliminary diagnosis is Diplopia. Bed requested for [facility] ER HOLD. Status is Observation. Condition is Stable. Problem is new. Symptoms are unchanged. cg
--- NOTE | 2019-08-30 23:41 | ER ---
Nurse's Notes [facility] Name: Marcello Manzanares Age: 73 yrs Sex: Male : 1945 Arrival Date: 08/30/2019 Time: 21:18 Bed 5 Private MD: Diagnosis: Diplopia Presentation: 08/29 21:21 Chief complaint: Patient states: Double vision since . Denies TRACY/CP. No cough ll1 or fever. Coronavirus screen: Proceed with normal triage. Patient denies a cough. Patient denies shortness of breath or difficulty breathing. Patient denies measured and/or subjective temperature greater than 100.4F prior to today's visit. Patient denies travel on a cruise ship or to a country the [facility] currently lists as an affected area. Patient denies contact with known and/or suspected case of COVID-19. Ebola Screen: Patient denies travel to an Ebola-affected area in the 21 days before illness onset. Initial Sepsis Screen: Does the patient meet any 2 criteria? HR > 90 bpm. Risk Assessment: Do you want to hurt yourself or someone else? Patient reports no desire to harm self or others. Onset of symptoms was August 26, 2019. 21:21 Method Of Arrival: Ambulatory ll1 21:21 Acuity: GURJIT 2 ll1 Historical: - Allergies: 21:24 Iodine; ll1 - PMHx: 21:24 Hypertension; High Cholesterol; CAD; TIA; ll1 - PSHx: 21:24 Knee surgery; Heart stents; ll1 - Immunization history:: Flu vaccine is up to date. - Social history:: Smoking status: Patient denies any tobacco usage or history of. Patient/guardian denies using alcohol, street drugs, tobacco products. Screenin:16 Abuse screen: Denies threats or abuse. Denies injuries from another. Nutritional rr5 screening: No deficits noted. Tuberculosis screening: No symptoms or risk factors identified. Fall Risk IV access (20 points). Gait- Normal/Bed Rest/Wheelchair (0 pts) Mental Status- Oriented to own ability (0 pts). Total Bennett Fall Scale indicates No Risk (0-24 pts). Assessment: 22:00 General: Appears in no apparent distress. comfortable, Behavior is calm, cooperative, rr5 appropriate for age. 22:00 Pain: Denies pain. Neuro: Level of Consciousness is awake, alert, obeys commands, rr5 Oriented to person, place, time, situation, Reports double vision. Cardiovascular: Capillary refill < 3 seconds Patient's skin is warm and dry. Respiratory: Airway is patent Respiratory effort is even, unlabored, Respiratory pattern is regular, symmetrical. GI: No signs and/or symptoms were reported involving the gastrointestinal system. : No signs and/or symptoms were reported regarding the genitourinary system. EENT: No signs and/or symptoms were reported regarding the EENT system. Derm: Skin is intact, is healthy with good turgor, Skin temperature is warm. Musculoskeletal: Circulation, motion, and sensation intact. Capillary refill < 3 seconds. 23:15 Reassessment: Patient appears in no apparent distress at this time. Patient is alert, rr5 oriented x 3, equal unlabored respirations, skin warm/dry/pink. laboratory called blood hemolyze, blood extracted and sent. 23:32 Reassessment: Patient appears in no apparent distress at this time. reassess by ED rr5 provider, advised for admission. patient agreed to stay. Vital Signs: 21:21 BP 151 / 85; Pulse 105; Resp 18; Temp 98.8; Pulse Ox 94% ; Pain 0/10; ll1 23:20 BP 130 / 89; Pulse 90; Resp 19; Pulse Ox 95% ; rr5 07/14 00:30 BP 135 / 75; Pulse 85; Resp 15; Temp 98.5; Pulse Ox 99% ; rr5 Visual Acuity: 08/29 22:40 Left Eye Visual acuity 20/25, ; Right Eye Visual acuity 20/20, ; Both Eyes Visual rr5 acuity 20/20; With Lenses; ED Course: 21:18 Patient arrived in ED. cf2 21:23 Triage completed. ll1 21:24 Arm band placed on Patient placed in an exam room, on a stretcher. ll1 21:30 Patient has correct armband on for positive identification. Bed in low position. Call rr5 light in reach. athletic monitor on. Pulse ox on. NIBP on. 21:31 Karl Givens MD is Attending Physician. mh7 21:54 Juanpablo Rome RN is Primary Nurse. rr5 22:28 CT Head Brain wo Cont In Process Unspecified. EDMS 22:40 Inserted saline lock: 20 gauge in left antecubital area, using aseptic technique. Blood rr5 collected. 23:15 IV discontinued, intact, bleeding controlled, No redness/swelling at site. Pressure rr5 dressing applied, IV cannula left AC removed. 23:17 Inserted saline lock: 20 gauge in left hand, using aseptic technique. Blood collected. rr5 23:39 Veronica Chapman MD is Hospitalizing Provider. [facility] 08/30 00:25 Assist provider with eye exam of both eyes. using fluorescein stain, Performed by rr5 Karl Givens MD Patient tolerated well. 08:08 Carotid Artery Bilateral Sent. sv 08:39 Primary Nurse role handed off by Juanpablo Rome, JONATHAN sv 08:39 Anh Clark, JONATHAN is Primary Nurse. sv 19:52 IV discontinued, intact, bleeding controlled, No redness/swelling at site. Pressure mg2 dressing applied. Administered Medications: 00:25 Drug: Tetracaine Drops 0.5 % 1 drops Route: Ophthalmic; Site: both eyes; rr5 01:25 Follow up: Response: No adverse reaction rr5 Outcome: 08/29 23:40 Decision to Hospitalize by Provider. [facility] 08/30 20:25 Patient left the ED. rv Signatures: Dispatcher [employer] EDMS Anh Clark RN RN Cody Reese RN RN mg2 Fabio Morrell RN RN Juanpablo Rome, RN RN rr5 Sarah King cf2 Kirsten Uriostegui RN RN 1 Karl Givens MD MD [facility] Corrections: (The following items were deleted from the chart) 08/29 23:20 20:40 Right Eye With Lenses, 20/20, Left Eye With Lenses, 20/25, Both Eyes With Lenses, rr5 20/20 rr5 08/30 01:58 01:57 No provider procedures requiring assistance completed. rr5 rr5
[2019-08-30 23:42] LABS: Potassium 3.9 mmol/L (3.5-5.1)
[2019-08-31] MEDS ORDERED: ONDANSETRON 4 MG/2 ML VIAL IV PRN (00:28)
[2019-08-31] MEDS ORDERED: ACETAMINOPHEN 500 MG TAB PO PRN (00:28)
[2019-08-31] MEDS: NA CHLORIDE 0.9% 1,000 ML IV SCH ×2 (01:00→14:20)
[2019-08-31 02:04] LABS: Blood Morphology Comment NOT SEEN (NOT SEEN); Platelet Estimate ADEQ
[2019-08-31] MEDS ORDERED: NA CHLORIDE 0.9% 1,000 ML ONE (02:09)
[2019-08-31 04:32] VITALS: BMI 34.2
[2019-08-31 06:36] LABS: Absolute Lymphocytes (CBC) 2.8 K/uL (0.7-4.9); Basophils % 0.3 % (0-1.3); Hematocrit 36.8 % (39.6-49.0); Lymphocytes % 40.2 % (15.3-44.8); MPV 7.6 fL (7.6-11.3); RBC Red Blood Cell Count 4.12 M/uL (4.33-5.43)
[2019-08-31 06:40] LABS: Protime INR 1.02
[2019-08-31 07:12] LABS: Albumin 3.6 g/dL (3.4-5.0); Bilirubin Total 0.4 mg/dL (0.2-1.0); Phosphorus 3.7 mg/dL (2.5-4.9); Protein, Total 7.3 g/dL (6.4-8.2)
[2019-08-31 07:15] LABS: Magnesium 2.2 mg/dL (1.8-2.4); Potassium 3.9 mmol/L (3.5-5.1)
--- NOTE | 2019-08-31 08:31 | RAD REPORT ---
EXAM DESCRIPTION: RAD - Chest Pa And Lat (2 Views) - 08/31/2019 5:55 am CLINICAL HISTORY: Stroke Chest pain. COMPARISON: <Comparisons> FINDINGS: The lungs are diffusely emphysematous. The heart is mildly prominent size. Small hiatal he rnia. IMPRESSION: Mild diffuse COPD.
--- NOTE | 2019-08-31 08:39 | RAD REPORT ---
EXAM DESCRIPTION: US - CP - 08/31/2019 7:47 am CLINICAL HISTORY: Diplopia Headache, drowsiness, visual disturbance COMPARISON: No comparisons TECHNIQUE: Real-time sonographic evaluation of both carotid systems was performed. Doppler interroga tion was performed with waveform tracing bilaterally. FINDINGS: Normal high resistance waveforms are noted in both external carotid arteries. The common c arotid arteries and internal carotid arteries show normal low resistance waveforms. Mild hard plaque is seen in both carotid bulbs, greater on the left. Peak systolic and end diastolic velocity values and the ICA/CCA ratios are in the non-hemodynamically significant range. Antegrade flow seen in both vertebral arteries. IMPRESSION: Mild hard plaquing in the carotid bulbs, greater on the left. No evidence of a hemodynamically significant stenosis.
[2019-08-31] MEDS ORDERED: ASPIRIN EC 81 MG TAB PO ONE (08:42)
[2019-08-31] MEDS ORDERED: CLOPIDOGREL 75 MG TABLET PO SCH (09:00)
[2019-08-31] MEDS ORDERED: ASPIRIN EC 81 MG TAB PO SCH (09:00)
[2019-08-31] MEDS ORDERED: PNEUMOCOCCAL VACCINE 0.5 ML IMVAC ONE (10:00)
[2019-08-31] MEDS ORDERED: CLOPIDOGREL 75 MG TABLET ONE (11:34)
--- NOTE | 2019-08-31 12:10 | EKG ---
Test Date: 2019-08-31 Test Time: 07:43:12 Train Reservation Clerk: BORA MEASUREMENT RESULTS: Intervals: Rate: 66 IN: 168 QRSD: 92 QT: 422 QTc: 442 Martinez: P: 50 IN: 168 QRS: 8 T: 20 INTERPRETIVE STATEMENTS: Normal sinus rhythm Incomplete right bundle branch block Borderline ECG No previous ECG available for comparison Electronically Signed On 08-31-19 12:09:28 CDT by Dylan Kaur
--- NOTE | 2019-08-31 13:22 | P.HP ---
Certification for Inpatient Patient admitted to: Observation With expected LOS: <2 Midnights Patient will require the following post-hospital care: None Practitioner: I am a practitioner with admitting privileges, knowledge of patient current condition, hospital course, and medical plan of care. Services: Services provided to patient in accordance with Admission requirements found in Title 42 Section 412.3 of the Code of Federal Regulations Patient History Date of Service: 08/31/19 Reason for admission: DIPLOPIA History of Present Illness: PATIENT IS A 73-YEAR-OLD GENTLEMAN WHO HAS A HISTORY OF A STROKE AND CORONARY ARTERY DISEASE ALONG WITH HYPERTENSION WHO PRESENTS TO THE HOSPITAL WITH DIPLOPIA. HE WENT TO SEE HIS CUSTOMS AND BORDER PROTECTION INSPECTOR WHO DID NOT FIND ANY OPHTHALMOLOGICAL ABNORMALITIES. IT WAS FELT THAT PATIENT HAD AN OCCIPITAL LOBE INFARCT. PATIENT WAS SENT TO THE EMERGENCY ROOM WHERE HE CONTINUED TO HAVE DOUBLE VISION. THEY SPOKE WITH NEUROLOGY WHO WANTED PATIENT ADMITTED TO THE HOSPITAL FOR FURTHER WORKUP. PATIENT NEUROLOGICALLY SEEMS TO BE COMPLETELY INTACT EXCEPT FOR THE DOUBLE VISION. PATIENT DOES NOT SEEM TO NEED EMERGENT HOSPITALIZATION. WE WILL PUT HIM IN FOR OBSERVATION TO GET AN MRI OF THE BRAIN PER NEUROLOGY RECOMMENDATION. ANTICIPATE DISCHARGE HOME TOMORROW UNLESS WE FIND SOMETHING WORRISOME. PATIENT WAS ADMITTED TO THE HOSPITAL FOR OBSERVATION. Allergies iodine Allergy (Unverified 08/31/19 00:51) Itching/Hives/Rash Home Medications: Aspirin [Ecotrin 81 MG] 162 mg PO DAILY #60 tablet. 08/31/19 Atorvastatin Calcium [Lipitor] 40 mg PO BEDTIME #30 tab 08/31/19 Clopidogrel Bisulfate [Plavix*] 75 mg PO DAILY #30 tablet 08/31/19 - Past Medical/Surgical History Has patient received pneumonia vaccine in the past: No -: hypertension -: hyperlipidimia -: CAD -: TIA -: heart stent -: knee surgery - Family History Father Medical History: Lung disease - Social History Smoking Status: Unknown if ever smoked Alcohol use: No CD- Drugs: No Caffeine use: Yes Review of Systems 10-point ROS is otherwise unremarkable Physical Examination - Vital Signs Temperature: 98 F Blood Pressure: 125/68 Pulse: 65 Respirations: 14 Pulse Ox (%): 96 - Physical Exam General: Alert, In no apparent distress, Oriented x3 HEENT: Atraumatic, PERRLA, Mucous membr. moist/pink, EOMI, Sclerae nonicteric Neck: Supple, 2+ carotid pulse no bruit, No LAD, Without JVD or thyroid abnormality Respiratory: Clear to auscultation bilaterally, Normal air movement Cardiovascular: Regular rate/rhythm, Normal S1 S2, No murmurs Gastrointestinal: Normal bowel sounds, Soft and benign, Non-distended, No tenderness Musculoskeletal: No clubbing, No swelling, No tenderness Integumentary: No rashes Neurological: Normal gait, Normal speech, Normal strength at 5/5 x4 extr, Normal tone, Sensation intact, Cranial nerves 3-12 intact, Normal affect Lymphatics: No axilla or inguinal lymphadenopathy - Studies Laboratory Data (last 24 hrs) 08/30/19 23:15: PT 12.6 H, INR 1.07, APTT 31.3 08/30/19 23:15: Sodium 141, Potassium 3.9, BUN 15, Creatinine 1.11, Glucose 108 H 08/30/19 23:15: WBC 8.5, Hgb 13.7, Hct 39.2 L, Plt Count 172 Assessment & Plan - Problems (Diagnosis) (1) Diplopia Current Visit: Yes Status: Acute (2) Acute CVA (cerebrovascular accident) Current Visit: Yes Status: Acute - Plan 1. MRI of the brain 2. Echocardiogram and carotid Doppler 3. Anti-platelet therapy and statin therapy 4. Neurology consultation 5. DVT prophylaxis *ANTICIPATE DISCHARGE LATER TODAY IF NEUROLOGY IS AGREEABLE AND IMAGING STUDIES ARE UNREMARKABLE. Discharge Plan: Home Plan to discharge in: 24 Hours - Advance Directives Does patient have a Living Will: No Does patient have a Durable POA for Healthcare: No - Code Status/Comfort Care Code Status Assessed: Yes Code Status: Full Code Critical Care: No Time Spent Managing PTS Care (In Minutes): 45
--- NOTE | 2019-08-31 15:05 | ECHO ---
HEIGHT: 5 ft 8 in WEIGHT: 225 lb 0 oz DATE OF STUDY: 08/31/[address]: Veronica Chapman MD 2-DIMENSIONAL: YES M.MODE: YES DOPPLER: YES COLOR FLOW: YES TDS: YES PORTABLE: NO DEFINITY: NO BUBBLE STUDY: NO DIAGNOSIS: STROKE CARDIAC HISTORY: CATHERIZATION: YES SURGERY: NO PROSTHETIC VALVE: NO PACEMAKER: NO MEASUREMENTS (cm) DIASTOLIC (NORMALS) SYSTOLIC (NORMALS) IVSd 1.3 (0.6-1.2) LA Diam 4.2 (1.9-4.0) LVEF 76% LVIDd 4.5 (3.5-5.7) LVIDs 2.5 (2.0-3.5) %FS 44% LVPWd 1.1 (0.6-1.2) Ao Diam 3.4 (2.0-3.7) 2 DIMENSIONAL ASSESSMENT: RIGHT ATRIUM: NORMAL LEFT ATRIUM: DILATED RIGHT VENTRICLE: NORMAL LEFT VENTRICLE: LEFT VENTRICULAR HYPERTROPHY TRICUSPID VALVE: NORMAL MITRAL VALVE: NORMAL PULMONIC VALVE: NORMAL AORTIC VALVE: NORMAL PERICARDIAL EFFUSION: NONE AORTIC ROOT: NORMAL LEFT VENTRICULAR WALL MOTION: NORMAL DOPPLER/COLOR FLOW: NORMAL COMMENTS: TECHNICALLY DIFFICULT STUDY. MILD LEFT VENTRICULAR HYPERTROPHY. NORMAL LEFT VENTRICULAR EJECTION FRACTION. NO WALL MOTION ABNORMALITY. LEFT ATRIAL ENLARGEMENT. NO THROMBUS. TECHNOLOGIST: Sera DRAKE
[2019-08-31 15:38] VITALS: BP 124/61; TEMP 97.6
--- NOTE | 2019-08-31 16:25 | RAD REPORT ---
EXAM DESCRIPTION: MRI - Brain W/Wo Cont - 08/31/2019 3:04 pm CLINICAL HISTORY: Double vision COMPARISON: August 30, [address] TECHNIQUE: Axial, sagittal, and coronal magnetic images of the brain were obtained. 20 cc MultiHance administered intravenously FINDINGS: Mild to moderate signal within periventricular, deep and subcortical white matter probably ischemic changes secondary to small vessel disease The ventricles are normal in caliber. Diffusion-weighted/ ADC mapping sequences do not demonstrate evidence of an acute infarction. No abnormal enhancement within the brain is seen. An extra-axial fluid collection is not noted. Fluid within the sinuses/mastoids is not seen IMPRESSION: No acute abnormality displayed
--- NOTE | 2019-08-31 16:27 | RAD REPORT ---
EXAM DESCRIPTION: MRI - MRA Neck W/Wo Cont - 08/31/2019 3:04 pm CLINICAL HISTORY: Double vision COMPARISON: None. TECHNIQUE: Magnetic resonance angiogram of the neck was performed. 20 cc MultiHance was administered intravenously. 3D MIPS reconstruction performed FINDINGS: Mild plaque is visualized within the carotid arteries. . An aneurysm is not seen. The vertebral arteries are codominant without visualization of an abnormality. IMPRESSION: Mild plaque within the carotid arteries No significant abnormalities displayed NASCET criteria used. Mild 0-49% stenosis Moderate 50-69% stenosis Severe 70-99% stenosis
--- NOTE | 2019-08-31 16:29 | RAD REPORT ---
EXAM DESCRIPTION: MRI - MRA Head Wo Cont - 08/31/2019 3:04 pm CLINICAL HISTORY: Double vision COMPARISON: None. TECHNIQUE: Magnetic resonance angiogram was performed. 3D MIPS reconstruction performed FINDINGS: The anterior cerebral, middle cerebral, posterior cerebral, distal internal carotid and ba silar arteries do not demonstrate a significant stenosis. An aneurysm is not displayed. IMPRESSION: Unremarkable MRA brain.
[2019-08-31 20:33] VITALS: O2SAT 99
[2019-08-31] MEDS ORDERED: ATORVASTATIN 20 MG TAB PO SCH (21:00)
[2019-08-31] MEDS ORDERED: ATORVASTATIN 40 MG TAB PO SCH (21:00)
--- NOTE | 2019-09-01 08:14 | RAD REPORT ---
EXAM DESCRIPTION: Head Brain Wo Cont CLINICAL HISTORY: 73 years Male, VIS[employer]ES TECHNIQUE: 5 mm axial images were obtained along with 3 mm reformatted coronal and sagittal images. This exam was performed according to our departmental dose-optimization program, which includes autom ated exposure control, adjustment of the mA and/or kV according to patient size and/or use of iterati ve reconstruction technique. COMPARISON: None. FINDINGS: No acute abnormal extracerebral fluid collections are demonstrated. The cortical sulci, ventricles, and cisterns are within normal limits. There is an old lacunar infarct within the right basal ganglia. There is mild chronic bilateral periventricular microangiopathic white matter changes. There are no areas of altered attenuation identified to suggest acute hemorrhage, infarction, or mass lesion. The visualized portions of the paranasal sinuses and mastoid air cells are clear. IMPRESSION: 1. No acute intracranial abnormalities. 2. Old lacunar infarct right basal ganglia. Electronically signed by: Bernard Byrnes MD 08/30/2019 10:53 PM CDT Due to temporary technical issues with the PACS/Fluency reporting system, reports are being signed by the in house radiologist without review as a courtesy to ensure prompt reporting. The interpreting r adiologist is fully responsible for the content of the report.
== END 2019-08-31 20:23 | disposition home or self-care (01) ==
LOC: ER 21:09 → ERHOLD 08-31 00:38
PROVIDERS: ADMIT Hospitalist; ATTEND Hospitalist
DX: H53.2 Diplopia (principal); I63.9 Cerebral infarction, unspecified; I25.10 Atherosclerotic heart disease of native coronary artery without angina pectoris; I11.9 Hypertensive heart disease without heart failure; I45.10 Unspecified right bundle-branch block; Z11.59 Encounter for screening for other viral diseases; I65.23 Occlusion and stenosis of bilateral carotid arteries; J44.9 Chronic obstructive pulmonary disease, unspecified; E78.00 Pure hypercholesterolemia, unspecified; Z79.82 Long term (current) use of aspirin; Z79.02 Long term (current) use of antithrombotics/antiplatelets; Z79.899 Other long term (current) drug therapy; Z95.5 Presence of coronary angioplasty implant and graft; Z86.73 Personal history of transient ischemic attack (TIA), and cerebral infarction without residual deficits
CPT/HCPCS: 93005; 93306; 85025 ×2; 80048; 36415; 83735; 84100; 85610 ×2; 80061; 82947; 85730 ×2; 80053; 70450; 71046; 93880; 70553; 70544; 70549; 99284; U0002; A9577; J7030; G0378 ×2